=== PATIENT | female | born 1960 | race African-American/Black ===

== ENCOUNTER 2017-09-20 10:26 | Outpatient (CLI) | payer MEDICARE, MEDICAID | END 2017-09-20 10:27 | disposition home or self-care (01) | LOC: BICRAD 10:26 | PROVIDERS: ATTEND Internal Medicine | DX: J45.40 Moderate persistent asthma, uncomplicated (principal); R91.8 Other nonspecific abnormal finding of lung field | CPT/HCPCS: 71046 ==

== ENCOUNTER 2017-10-20 07:30 | Outpatient (CLI) | payer MEDICARE, MEDICAID | END 2017-10-20 07:31 | disposition home or self-care (01) | LOC: BICULT 07:30 | PROVIDERS: ATTEND Internal Medicine | DX: Z12.31 Encounter for screening mammogram for malignant neoplasm of breast (principal) | CPT/HCPCS: 77063; 77067 ==

== ENCOUNTER 2017-11-02 09:29 | Outpatient (CLI) | payer MEDICARE, MEDICAID ==
--- NOTE | 2017-11-02 11:17 | ULT ---
ULTRASOUND RETROPERITONEUM LIMTED: (ABDOMINAL AORTA) Date: 11/02/17 HISTORY: 57-year-old female with abdominal bruit. FINDINGS: The caliber of the abdominal aorta is as follows (in cm): Proximal: 2.0 x 1.4 cm. Mid: 1.4 x 1.3 cm. Distal: 0.8 x 1.2 cm. There is multifocal calcified atherosclerotic plaque causing irregularity throughout the abdominal ao rta, especially at mid an distal portions. IMPRESSION: 1. Moderate atherosclerosis of the abdominal aorta. 2. No abdominal aortic aneurysm. JN R POS: CET
== END 2017-11-02 09:30 | disposition home or self-care (01) ==
LOC: ULT 09:29
PROVIDERS: ATTEND Internal Medicine
DX: R09.89 Other specified symptoms and signs involving the circulatory and respiratory systems (principal); I70.0 Atherosclerosis of aorta
CPT/HCPCS: 76775

== ENCOUNTER 2021-06-17 09:11 | Outpatient (CLI) | payer MEDICARE, MEDICAID | END 2021-06-17 09:12 | disposition home or self-care (01) | LOC: BICULT 09:11 | PROVIDERS: ATTEND Nurse Practitioner Family | DX: R10.84 Generalized abdominal pain (principal); N28.9 Disorder of kidney and ureter, unspecified | CPT/HCPCS: 76700 ==

== ENCOUNTER 2021-07-16 09:59 | Outpatient (CLI) | payer MEDICARE, MEDICAID ==
[2021-07-16 10:25] LABS: Estimated GFR-MDRD - POC Greater than 90
[2021-07-16] MEDS ORDERED: Iopamidol-370 76% 500 ML 1 ML ONE (12:42)
== END 2021-07-16 10:00 | disposition home or self-care (01) ==
LOC: BICCT 09:59
PROVIDERS: ATTEND Nurse Practitioner Family
DX: N28.9 Disorder of kidney and ureter, unspecified (principal)
CPT/HCPCS: 74170; 82565; Q9967

== ENCOUNTER 2023-02-09 10:27 | Outpatient (CLI) | payer OTHER, MEDICAID | END 2023-02-09 10:28 | disposition home or self-care (01) | LOC: BICCT 10:27 | PROVIDERS: ATTEND Student in an Organized Health Care Education/Training Program | DX: Z12.2 Encounter for screening for malignant neoplasm of respiratory organs (principal); F17.210 Nicotine dependence, cigarettes, uncomplicated | CPT/HCPCS: 71271 ==

== ENCOUNTER 2024-03-26 13:22 | Outpatient (CLI) | payer OTHER, MEDICAID | END 2024-03-26 13:23 | disposition home or self-care (01) | LOC: CT 13:22 | PROVIDERS: ATTEND Student in an Organized Health Care Education/Training Program | DX: Z12.2 Encounter for screening for malignant neoplasm of respiratory organs (principal); F17.210 Nicotine dependence, cigarettes, uncomplicated | CPT/HCPCS: 71271 ==

== ENCOUNTER 2024-05-21 10:36 | Outpatient (CLI) | payer OTHER, MEDICAID | END 2024-05-21 10:37 | disposition home or self-care (01) | LOC: ULT 10:36 | PROVIDERS: ATTEND Physician Assistant Medical | DX: B18.2 Chronic viral hepatitis C (principal) | CPT/HCPCS: 76705 ==